=== PATIENT | female | born 1960 | race Asian ===

== ENCOUNTER 2016-03-16 08:00 | Outpatient (CLI) | payer OTHER | END 2016-03-16 08:01 | disposition home or self-care (01) | DX: Z00.00 Encounter for general adult medical examination without abnormal findings (principal); E78.00 Pure hypercholesterolemia, unspecified ==

== ENCOUNTER 2017-07-10 08:00 | Outpatient (CLI) | payer OTHER ==
[2017-07-10 13:42] LABS: BASOPHILS # (AUTO) 0.1 10^3/uL (0.0-0.1); BASOPHILS % (AUTO) 0.9 %; EOSINOPHILS # (AUTO) 0.4 10^3/uL (0.0-0.7); EOSINOPHILS % (AUTO) 5.9 %; HGB - HEMOGLOBIN 14.3 g/dL (12.0-16.0); LYMPHOCYTES % (AUTO) 29.5 %; MEAN CORPUSCULAR HEMOGLOBIN 28.4 pg (27.0-31.0); MEAN CORPUSCULAR HGB CONC 32.8 g/dL (32.0-36.0); MEAN CORPUSCULAR VOLUME 86.7 fL (81.0-99.0); MEAN PLATELET VOLUME 7.7 fL (7.9-10.8); MONOCYTES # (AUTO) 0.5 10^3/uL (0.0-1.0); MONOCYTES % (AUTO) 7.8 %; NEUTROPHILS # (AUTO) 3.8 10^3/uL (1.5-6.6); NEUTROPHILS % (AUTO) 55.9 %; PLT - PLATELET COUNT 299 10^3/uL (130-450); RED BLOOD COUNT 5.03 10^6/uL (4.20-5.40); RED CELL DISTRIBUTION WIDTH 15.6 % (12.0-15.0); WHITE BLOOD COUNT 6.8 x10^3/uL (4.8-10.8)
[2017-07-10 13:51] LABS: ALBUMIN 3.7 g/dL (3.2-5.5); ALBUMIN/GLOBULIN RATIO 0.9 (1.0-2.2); ALKALINE PHOSPHATASE 56 IU/L (42-121); ALT ALANINE AMINOTRANSFERASE 27 IU/L (10-60); AST ASPARTATE AMINOTRANSFERASE 29 IU/L (10-42); BILIRUBIN,TOTAL 0.9 mg/dL (0.2-1.0); BUN - BLOOD UREA NITROGEN 13 mg/dL (6-20); CARBON DIOXIDE - CO2 27 mmol/L (21-32); CHLORIDE 103 mmol/L (101-111); CHOL/HDL RATIO 3.2 (<4.4); CHOLESTEROL 174 mg/dL; CREATININE 0.6 mg/dL (0.4-1.0); GFR - MDRD 102 (>89); GLUCOSE 100 mg/dL (70-100); HDL CHOLESTEROL 55 mg/dL; LDL CHOLESTEROL,CALCULATED 100 mg/dL; LDL/HDL RATIO 1.8 (<4.4); SODIUM 137 mmol/L (135-145); TOTAL PROTEIN 7.8 g/dL (6.7-8.2); VLDL CHOLESTEROL 19 mg/dL
[2017-07-10 15:10] LABS: HEMOGLOBIN A1C 0.73 g/dL; HEMOGLOBIN A1C % 6.3 % (4.6-6.2)
== END 2017-07-10 08:01 | disposition home or self-care (01) ==
LOC: LAB.WCP 08:00
PROVIDERS: ATTEND Family Medicine
DX: I10 Essential (primary) hypertension (principal); E78.5 Hyperlipidemia, unspecified; R53.83 Other fatigue; G47.30 Sleep apnea, unspecified; R79.9 Abnormal finding of blood chemistry, unspecified; R73.9 Hyperglycemia, unspecified
CPT/HCPCS: 36415; 80053; 80061; 83036; 83721; 84443; 85025

== ENCOUNTER 2017-11-13 09:59 | Outpatient (CLI) | payer OTHER | END 2017-11-13 10:00 | disposition home or self-care (01) | LOC: SC 09:59 | PROVIDERS: ATTEND Internal Medicine Pulmonary Disease | DX: G47.33 Obstructive sleep apnea (adult) (pediatric) (principal) | CPT/HCPCS: 99203; 99212 ==

== ENCOUNTER 2017-12-27 20:30 | Outpatient (CLI) | payer OTHER | END 2017-12-27 20:31 | disposition home or self-care (01) | LOC: SC 20:30 | PROVIDERS: ATTEND Internal Medicine Pulmonary Disease | DX: G47.33 Obstructive sleep apnea (adult) (pediatric) (principal) | CPT/HCPCS: 95810 ==

== ENCOUNTER 2018-01-14 09:54 | Outpatient (CLI) | payer OTHER | END 2018-01-14 09:55 | disposition home or self-care (01) | LOC: SC 09:54 | PROVIDERS: ATTEND Internal Medicine Pulmonary Disease | DX: G47.33 Obstructive sleep apnea (adult) (pediatric) (principal) | CPT/HCPCS: 99212; 99213 ==

== ENCOUNTER 2018-04-05 09:45 | Outpatient (CLI) | payer OTHER ==
--- NOTE | 2018-04-08 10:06 | Mammography Report ---
Reason: ENCOUNTER FOR SCREENING MAMMOGRAM FOR MALIGNANT NE Procedure Date: 04/05/2018 Accession Number: [id number] / [id number] Procedure: FERMIN - Screening Mammo w/Brendon CPT Code: FULL RESULT: EXAM: Screening Mammo w/Brendon DATE: 04/05/2018 10:24 AM CLINICAL HISTORY: Screening encounter. History of early menses. TECHNIQUE: Bilateral CC and MLO views were obtained. A cleavage view was obtained. COMPARISON: 04/12/2012 through 05/01/2008. FINDINGS: The breasts demonstrate diffuse fatty replacement bilaterally. Benign-appearing intramammary lymph nodes are once again demonstrated, typically benign. No suspicious masses, clustered microcalcifications, or regions of architectural distortion are identified. IMPRESSION: Benign findings RECOMMENDATION: Routine annual screening unless otherwise clinically indicated. BIRADS CATEGORY 2: Benign findings STANDARD QUALIFYING STATEMENTS: 1. This examination was not reviewed with the aid of Computer-Aided Detection (CAD). 2. A negative or benign imaging report should not delay biopsy if clinically suspicious findings are present. Consider surgical consultation if warrented. More than 5% of cancers are not identified by imaging. 3. Dense breasts may obscure an underlying neoplasm. 4. This examination was reviewed with the aid of 3D breast imaging (tomosynthesis).
== END 2018-04-05 09:46 | disposition home or self-care (01) ==
LOC: DI 09:45
PROVIDERS: ATTEND Family Medicine
DX: Z12.31 Encounter for screening mammogram for malignant neoplasm of breast (principal); R73.03 Prediabetes
CPT/HCPCS: 77063; 77067

== ENCOUNTER 2018-04-05 11:34 | Outpatient (CLI) | payer OTHER ==
[2018-04-05 19:52] LABS: CALCIUM 9.3 mg/dL (8.5-10.3); CREATININE 0.6 mg/dL (0.4-1.0)
[2018-04-05 20:31] LABS: HB2 TOTAL 16.1 g/dL; HEMOGLOBIN A1C 0.77 g/dL; HEMOGLOBIN A1C % 6.5 % (4.6-6.2)
== END 2018-04-05 11:35 | disposition home or self-care (01) ==
LOC: LAB.WCP 11:34
PROVIDERS: ATTEND Physician Assistant Medical
DX: R73.03 Prediabetes (principal)
CPT/HCPCS: 36415; 80048; 83036

== ENCOUNTER 2018-04-11 10:22 | Outpatient (CLI) | payer OTHER ==
--- NOTE | 2018-04-11 12:11 | XRAY Report ---
Reason: LOW BACK PAIN Procedure Date: 04/11/2018 Accession Number: [id number] / [id number] Procedure: WCP - Lumbar Spine 2 View CPT Code: FULL RESULT: EXAM: LUMBOSACRAL SPINE RADIOGRAPHY EXAM DATE: 04/11/2018 10:36 AM. CLINICAL HISTORY: Low back pain. COMPARISONS: Lumbar spine 11/27/2007 3:18 PM. TECHNIQUE: 2 views. FINDINGS: Alignment: Normal. No spondylolisthesis or scoliosis. Bones: Five fdx-wwv-ksbqmst lumbar vertebral bodies are present. No fractures or bone lesions. Disks: Normal. Disk heights are maintained. Facets: Moderate lower lumbar spine facet degenerative changes are noted, predominately L4 and L5. Sacroiliac Joints: Unremarkable. Soft Tissues: Surgical clips are seen projecting in the right upper quadrant and over the pelvis. IMPRESSION: Facet predominant degenerative changes. RADIA
== END 2018-04-11 10:23 | disposition home or self-care (01) ==
LOC: DI.WCP 10:22
PROVIDERS: ATTEND Physician Assistant Medical
DX: M47.816 Spondylosis without myelopathy or radiculopathy, lumbar region (principal); Z71.3 Dietary counseling and surveillance; R73.03 Prediabetes
CPT/HCPCS: 72100; 97802

== ENCOUNTER 2018-04-11 12:53 | Outpatient (CLI) | payer OTHER | END 2018-04-11 12:54 | disposition home or self-care (01) | LOC: NS 12:53 | PROVIDERS: ATTEND Physician Assistant Medical | DX: Z71.3 Dietary counseling and surveillance (principal); R73.03 Prediabetes | CPT/HCPCS: 97802 ==

== ENCOUNTER 2018-04-22 13:19 | Outpatient (CLI) | payer OTHER | END 2018-04-22 13:20 | disposition home or self-care (01) | LOC: SC 13:19 | PROVIDERS: ATTEND Internal Medicine Pulmonary Disease | DX: G47.33 Obstructive sleep apnea (adult) (pediatric) (principal) | CPT/HCPCS: 99212; 99213 ==

== ENCOUNTER 2018-08-21 07:51 | Day surgery (SDC) | payer OTHER ==
[2018-08-21] MEDS ORDERED: LACTATED RINGERS 800 ML IV ONE (07:57)
[2018-08-21] MEDS ORDERED: fentaNYL 250 MCG/5 ML VIAL IVP ONE (09:25)
[2018-08-21] MEDS ORDERED: MIDAZOLAM 2 MG/2 ML VIAL IVP ONE (09:25)
[2018-08-21] MEDS ORDERED: LACTATED RINGERS 700 ML IV ONE (09:50)
[2018-08-21] MEDS ORDERED: ONDANSETRON 4 MG/2 ML VIAL ONE ×2 (11:11→11:33)
[2018-08-21] MEDS ORDERED: LACTATED RINGERS 1,000 ML IV ONE (11:50)
[2018-08-21] MEDS ORDERED: MECLIZINE 12.5 MG TABLET PO ONE (13:00)
[2018-08-21 13:28] VITALS: BP 135/99
== END 2018-08-21 07:52 | disposition home or self-care (01) ==
LOC: SDS 07:51
PROVIDERS: ATTEND Surgery
PROC: 0DBL8ZZ Excision of Transverse Colon, Via Natural or Artificial Opening Endoscopic (ICD-10-PCS; 2018-08-21)
PROC: 0DBH8ZZ Excision of Cecum, Via Natural or Artificial Opening Endoscopic (ICD-10-PCS; 2018-08-21)
PROC: 0DBM8ZZ Excision of Descending Colon, Via Natural or Artificial Opening Endoscopic (ICD-10-PCS; 2018-08-21)
PROC: 0DBN8ZZ Excision of Sigmoid Colon, Via Natural or Artificial Opening Endoscopic (ICD-10-PCS; principal; 2018-08-21 09:00)
DX: Z12.11 Encounter for screening for malignant neoplasm of colon (principal); D12.3 Benign neoplasm of transverse colon; D12.5 Benign neoplasm of sigmoid colon; K63.5 Polyp of colon; K64.8 Other hemorrhoids; K64.4 Residual hemorrhoidal skin tags; E66.01 Morbid (severe) obesity due to excess calories; I10 Essential (primary) hypertension; J45.909 Unspecified asthma, uncomplicated; Z68.42 Body mass index [BMI] 45.0-49.9, adult; Z87.891 Personal history of nicotine dependence; Z79.899 Other long term (current) drug therapy; Z79.51 Long term (current) use of inhaled steroids
CPT/HCPCS: 45380; 45385; A9270; J3010; J7120

== ENCOUNTER 2019-09-02 10:34 | Outpatient (CLI) | payer OTHER ==
[2019-09-02 18:11] LABS: BASOPHILS # (AUTO) 0.1 10^3/uL (0.0-0.1); BASOPHILS % (AUTO) 0.8 %; EOSINOPHILS # (AUTO) 0.3 10^3/uL (0.0-0.7); EOSINOPHILS % (AUTO) 4.5 %; HGB - HEMOGLOBIN 14.9 g/dL (12.0-16.0); LYMPHOCYTES # (AUTO) 1.9 10^3/uL (1.5-3.5); MEAN CORPUSCULAR HEMOGLOBIN 29.6 pg (27.0-31.0); MEAN CORPUSCULAR HGB CONC 32.4 g/dL (32.0-36.0); MEAN CORPUSCULAR VOLUME 91.3 fL (81.0-99.0); MEAN PLATELET VOLUME 9.2 fL (7.9-10.8); MONOCYTES # (AUTO) 0.5 10^3/uL (0.0-1.0); MONOCYTES % (AUTO) 7.8 %; NEUTROPHILS # (AUTO) 3.5 10^3/uL (1.5-6.6); NEUTROPHILS % (AUTO) 56.6 %; PLT - PLATELET COUNT 338 10^3/uL (130-450); RED BLOOD COUNT 5.04 10^6/uL (4.20-5.40); RED CELL DISTRIBUTION WIDTH 15.4 % (12.0-15.0); WHITE BLOOD COUNT 6.2 x10^3/uL (4.8-10.8)
[2019-09-02 19:27] LABS: ALBUMIN 3.9 g/dL (3.2-5.5); ALKALINE PHOSPHATASE 49 IU/L (42-121); ALT ALANINE AMINOTRANSFERASE 30 IU/L (10-60); AST ASPARTATE AMINOTRANSFERASE 26 IU/L (10-42); BILIRUBIN,TOTAL 0.9 mg/dL (0.2-1.0); BUN - BLOOD UREA NITROGEN 19 mg/dL (6-20); CALCIUM 9.6 mg/dL (8.5-10.3); CARBON DIOXIDE - CO2 22 mmol/L (21-32); CHLORIDE 103 mmol/L (101-111); CHOL/HDL RATIO 2.9 (<4.4); CHOLESTEROL 153 mg/dL; CREATININE 0.6 mg/dL (0.4-1.0); GLUCOSE 90 mg/dL (70-100); HDL CHOLESTEROL 52 mg/dL; LDL CHOLESTEROL,CALCULATED 86 mg/dL; LDL/HDL RATIO 1.7 (<4.4); SODIUM 139 mmol/L (135-145); TOTAL PROTEIN 7.8 g/dL (6.7-8.2); VLDL CHOLESTEROL 15 mg/dL
== END 2019-09-02 23:59 | disposition home or self-care (01) ==
LOC: LAB.WCP 10:34
PROVIDERS: ATTEND Physician Assistant Medical
DX: E11.9 Type 2 diabetes mellitus without complications (principal); E78.5 Hyperlipidemia, unspecified; R53.83 Other fatigue
CPT/HCPCS: 36415; 80053; 80061; 81599; 82043; 83036; 83721; 84443; 85025

== ENCOUNTER 2020-10-19 08:00 | Outpatient (CLI) | payer OTHER ==
[2020-10-19 12:15] LABS: BASOPHILS # (AUTO) 0.1 10^3/uL (0.0-0.1); EOSINOPHILS # (AUTO) 0.6 10^3/uL (0.0-0.7); EOSINOPHILS % (AUTO) 7.3 %; HCT - HEMATOCRIT 45.5 % (37.0-47.0); HGB - HEMOGLOBIN 14.8 g/dL (12.0-16.0); LYMPHOCYTES # (AUTO) 2.5 10^3/uL (1.5-3.5); LYMPHOCYTES % (AUTO) 31.4 %; MEAN CORPUSCULAR HEMOGLOBIN 29.4 pg (27.0-31.0); MEAN CORPUSCULAR HGB CONC 32.5 g/dL (32.0-36.0); MEAN CORPUSCULAR VOLUME 90.3 fL (81.0-99.0); MEAN PLATELET VOLUME 9.5 fL (7.9-10.8); MONOCYTES # (AUTO) 0.6 10^3/uL (0.0-1.0); NEUTROPHILS # (AUTO) 4.1 10^3/uL (1.5-6.6); PLT - PLATELET COUNT 322 10^3/uL (130-450); RED BLOOD COUNT 5.04 10^6/uL (4.20-5.40); RED CELL DISTRIBUTION WIDTH 14.6 % (12.0-15.0); WHITE BLOOD COUNT 7.9 x10^3/uL (4.8-10.8)
[2020-10-19 12:28] LABS: ALBUMIN 4.2 g/dL (3.2-5.5); ALBUMIN/GLOBULIN RATIO 1.1 (1.0-2.2); ALKALINE PHOSPHATASE 51 IU/L (42-121); ALT ALANINE AMINOTRANSFERASE 19 IU/L (10-60); AST ASPARTATE AMINOTRANSFERASE 20 IU/L (10-42); BILIRUBIN,TOTAL 0.9 mg/dL (0.2-1.0); BUN - BLOOD UREA NITROGEN 14 mg/dL (6-20); CALCIUM 9.9 mg/dL (8.5-10.3); CARBON DIOXIDE - CO2 30 mmol/L (21-32); CHLORIDE 99 mmol/L (101-111); CHOL/HDL RATIO 3.2 (<4.4); CHOLESTEROL 204 mg/dL; CREATININE 0.7 mg/dL (0.4-1.0); GFR - MDRD 85 (>89); GLUCOSE 114 mg/dL (70-100); HDL CHOLESTEROL 63 mg/dL; LDL CHOLESTEROL,CALCULATED 112 mg/dL; LDL/HDL RATIO 1.8 (<4.4); POTASSIUM 4.6 mmol/L (3.5-5.0); SODIUM 140 mmol/L (135-145); TOTAL PROTEIN 8.2 g/dL (6.7-8.2); TRIGLYCERIDES 147 mg/dL; VLDL CHOLESTEROL 29 mg/dL
[2020-10-19 12:31] LABS: ESTIMATED AVERAGE GLUCOSE 128 mg/dL (70-100); HEMOGLOBIN A1c% 6.1 % (4.27-6.07)
[2020-10-19 12:32] LABS: CREATININE,URINE 107.5 mg/dL; MICROALBUM/CREATININE RATIO,UR 7.4 ug/mg (<30.0); MICROALBUMIN,URINE 0.8 mg/dL (0-300.0)
[2020-10-19 12:38] LABS: THYROID STIMULATING HORMONE 1.21 uIU/mL (0.34-5.60)
== END 2020-10-19 23:59 | disposition home or self-care (01) ==
LOC: LAB.WCP 08:00
PROVIDERS: ATTEND Physician Assistant Medical
DX: I10 Essential (primary) hypertension (principal); E78.5 Hyperlipidemia, unspecified; E11.9 Type 2 diabetes mellitus without complications
CPT/HCPCS: 36415; 80053; 80061; 82043; 82570; 83036; 83721; 84443; 85025

== ENCOUNTER 2020-11-08 14:11 | Outpatient (CLI) | payer OTHER ==
--- NOTE | 2020-11-08 14:55 | SLEEP CARE CONSULTATION ---
Information from patient questionnaire entered by Beti Arango. I have reviewed and concur with the information entered by Beit Arango. This document represents the service I personally performed and the decisions made by me, Aida Salvador MD, [facility]. History of Present Illness Service Date and Time: 11/08/2020 1411 Previous diagnosis: Very Severe, Obstructive Sleep Apnea-Hypopnea Syndrome AHI: 85.8 Reason for follow up: annual Equipment type: CPAP Equipment obtained from: [employer] Prior sleep studies: Yes Year and Where: 12/2017 [facility] Type of Sleep Study: Polysomnography HPI additional information: Ms. Lima returned today for follow up of nasal CPAP therapy. She was diagnosed to have very severe obstructive sleep apnea-hypopnea syndrome. The patient went to [facility] for the equipment and was fitted with a nasal mask. She reports using the device nightly and all through the night. The compliance report shows usage in 169 nights out of the past 180 nights, averaging 5.5 hours a night. The > 4 hour compliance rate for the past 30 days is 81.7%. She complained of no particular problem with the device such as soreness on the face, dry nose, epistaxis, nasal congestion or headache. She thinks that the pressure of 10 - 16 cmH2O is comfortable. On the CPAP therapy she notices improvement in her sleep quality, and that she wakes up feeling fresher in the morning and more awake/alert during the day. The Paterson Sleepiness Scale score 13. Her notices no snore at all. The average residual AHI is 3.0. Average time in large leak per day is 16 minutes. The 90th percentile pressure is 14.5 cmH2O. CPAP Compliance Data - Data Reviewed with Patient Average duration of nightly device use: 5 hours 31 minutes Compliance rate %: 81.7 Current pressure setting (cmH2O): 10-16 Humidity settin Heated hose settin Average residual AHI: 3 Average large leak: 16 minutes 51 seconds Subjective Missed days of use due to: reports: other Patient concerns: reports: mask discomfort, air blowing in eyes, mask leak noise, nasal congestion, other (headache) Current pressure setting perceived as: comfortable Initial Paterson Sleepiness Scale score: 9 (in 2018) Current Paterson Sleepiness Scale score: 13 Allergies and Home Medications Drug allergies reviewed: Yes Home medication list reviewed: Yes Review of Systems Review of systems same as previous: Yes Physical Exam Heart Rate: 93 O2 Saturation: 100 Height: 5 ft Weight: 238 lb Body Mass Index: 46.5 BMI Classification: Morbidly Obese Impression and Plan IMPRESSION: 1. Obstructive Sleep Apnea-Hypopnea Syndrome, very severe (AHI was 85.8) with the patient not using her Respironics autoCPAP because of the recall. She has not seen any debris in the water reservoir or the hose. She has some headache but not respiratory symptoms. Because her sleep-disordered breathing is very severe, I recommend using the device until it can be replaced. I will also issue her a prescription for a ResMed device. PLAN: 1. Continue with autoCPAP set at 10 - 16 cmH2O. 2. Prescription made for a ResMed AirSense 10 autoCPAP. 3. Try to lose weight. 4. Return in one year for follow up or earlier if she does get a new machine. Follow up with [facility] Care in: 1 year Visit Type: In Office Time Spent with Patient (minutes): 15 Provider Statement: I spent 100% of the Face to Face Visit with the patient with greater than 50% spent counseling the patient and coordination of care.
== END 2020-11-08 14:12 | disposition home or self-care (01) ==
LOC: SC 14:11
PROVIDERS: ATTEND Internal Medicine Pulmonary Disease
DX: G47.33 Obstructive sleep apnea (adult) (pediatric) (principal); E66.01 Morbid (severe) obesity due to excess calories; Z68.42 Body mass index [BMI] 45.0-49.9, adult
CPT/HCPCS: 99212

== ENCOUNTER 2021-01-17 12:05 | Outpatient (CLI) | payer OTHER ==
[2021-01-17 18:29] LABS: ALBUMIN 4.2 g/dL (3.2-5.5); ALBUMIN/GLOBULIN RATIO 1.1 (1.0-2.2); ALKALINE PHOSPHATASE 50 IU/L (42-121); ALT ALANINE AMINOTRANSFERASE 21 IU/L (10-60); AST ASPARTATE AMINOTRANSFERASE 24 IU/L (10-42); BILIRUBIN,TOTAL 0.8 mg/dL (0.2-1.0); BUN - BLOOD UREA NITROGEN 14 mg/dL (6-20); CALCIUM 9.7 mg/dL (8.5-10.3); CARBON DIOXIDE - CO2 29 mmol/L (21-32); CHLORIDE 100 mmol/L (101-111); CHOL/HDL RATIO 2.6 (<4.4); CHOLESTEROL 166 mg/dL; CREATININE 0.7 mg/dL (0.4-1.0); GFR - MDRD 85 (>89); GLUCOSE 86 mg/dL (70-100); HDL CHOLESTEROL 63 mg/dL; LDL CHOLESTEROL,CALCULATED 75 mg/dL; LDL/HDL RATIO 1.2 (<4.4); POTASSIUM 4.1 mmol/L (3.5-5.0); SODIUM 137 mmol/L (135-145); TOTAL PROTEIN 8.1 g/dL (6.7-8.2); TRIGLYCERIDES 138 mg/dL; VLDL CHOLESTEROL 28 mg/dL
[2021-01-17 18:47] LABS: ESTIMATED AVERAGE GLUCOSE 126 mg/dL (70-100)
== END 2021-01-17 23:59 | disposition home or self-care (01) ==
LOC: LAB.WCP 12:05
PROVIDERS: ATTEND Physician Assistant Medical
DX: E11.9 Type 2 diabetes mellitus without complications (principal)
CPT/HCPCS: 36415; 80053; 80061; 83036; 83721

== ENCOUNTER 2021-04-15 12:35 | Outpatient (CLI) | payer OTHER ==
[2021-04-15 18:07] LABS: CALCIUM 9.6 mg/dL (8.5-10.3); CREATININE 0.8 mg/dL (0.4-1.0); POTASSIUM 4.1 mmol/L (3.5-5.0)
[2021-04-15 20:57] LABS: ESTIMATED AVERAGE GLUCOSE 120 mg/dL (70-100); HEMOGLOBIN A1c% 5.8 % (4.27-6.07)
== END 2021-04-15 12:36 | disposition home or self-care (01) ==
LOC: LAB.N 12:35
PROVIDERS: ATTEND Physician Assistant Medical
DX: E11.9 Type 2 diabetes mellitus without complications (principal)
CPT/HCPCS: 36415; 80048; 83036

== ENCOUNTER 2021-06-15 11:34 | Outpatient (CLI) | payer OTHER ==
--- NOTE | 2021-06-17 16:24 | Mammography Report ---
BILATERAL DIGITAL SCREENING MAMMOGRAM 3D/2D: 06/15/2021 CLINICAL: Routine screening. Comparison is made to exams dated: 09/09/2019 mammogram, 04/05/2018 mammogram, 04/12/2012 mammogram, and 10/26/2009 mammogram - [facility]. The tissue of both breasts is predominantly fat ty. No significant masses, calcifications, or other findings are seen in either breast. There has been no significant interval change. IMPRESSION: NEGATIVE There is no mammographic evidence of malignancy. A 1 year screening mammogram is recommended. This exam was interpreted at Station ID: [id number]. NOTE: For mammograms, a report in lay terms will be sent to the patient. Approximately 15% of breast malignancies will not be visualized mammographically. In the management of a palpable breast mass, a negative mammogram must not discourage biopsy of a clinically suspicious lesion. Electronically Signed By: Sanket Rao M.D., jr/penrad:06/15/2021 12:33:11 ACR BI-RADS Category 1: Negative 3341F PARENCHYMAL PATTERN: (F) - The breast(s) demonstrate(s) diffuse fatty replacement. BI-RADS CATEGORY: (1) - 1 RECOMMENDATION: (ANNUAL) - Recommend routine annual screening mammography. [id number] 1 year screening LATERALITY: (B)
== END 2021-06-15 11:35 | disposition home or self-care (01) ==
LOC: DI.N 11:34
DX: Z12.31 Encounter for screening mammogram for malignant neoplasm of breast (principal)

== ENCOUNTER 2021-11-01 09:49 | Outpatient (CLI) | payer OTHER ==
[2021-11-01 12:50] LABS: BASOPHILS % (AUTO) 0.6 %; EOSINOPHILS # (AUTO) 0.3 10^3/uL (0.0-0.7); EOSINOPHILS % (AUTO) 4.9 %; HCT - HEMATOCRIT 43.4 % (37.0-47.0); HGB - HEMOGLOBIN 14.4 g/dL (12.0-16.0); LYMPHOCYTES % (AUTO) 31.4 %; MEAN CORPUSCULAR HEMOGLOBIN 29.1 pg (27.0-31.0); MEAN CORPUSCULAR HGB CONC 33.2 g/dL (32.0-36.0); MEAN CORPUSCULAR VOLUME 87.7 fL (81.0-99.0); MEAN PLATELET VOLUME 9.3 fL (7.9-10.8); MONOCYTES # (AUTO) 0.5 10^3/uL (0.0-1.0); MONOCYTES % (AUTO) 8.4 %; NEUTROPHILS # (AUTO) 3.4 10^3/uL (1.5-6.6); NEUTROPHILS % (AUTO) 54.4 %; PLT - PLATELET COUNT 293 10^3/uL (130-450); RED BLOOD COUNT 4.95 10^6/uL (4.20-5.40); RED CELL DISTRIBUTION WIDTH 14.6 % (12.0-15.0); WHITE BLOOD COUNT 6.3 x10^3/uL (4.8-10.8)
[2021-11-01 13:34] LABS: CREATININE,URINE 18.6 mg/dL; MICROALBUM/CREATININE RATIO,UR 21.5 ug/mg (<30.0); MICROALBUMIN,URINE 0.4 mg/dL (0-300.0)
[2021-11-01 13:39] LABS: ALBUMIN 4.2 g/dL (3.2-5.5); ALKALINE PHOSPHATASE 47 IU/L (42-121); ALT ALANINE AMINOTRANSFERASE 24 IU/L (10-60); AST ASPARTATE AMINOTRANSFERASE 26 IU/L (10-42); BILIRUBIN,TOTAL 0.7 mg/dL (0.2-1.0); BUN - BLOOD UREA NITROGEN 18 mg/dL (6-20); CARBON DIOXIDE - CO2 26 mmol/L (21-32); CHLORIDE 102 mmol/L (101-111); CHOL/HDL RATIO 2.1 (<4.4); CHOLESTEROL 126 mg/dL; CREATININE 0.8 mg/dL (0.4-1.0); GFR - MDRD 72 (>89); GLUCOSE 94 mg/dL (70-100); HDL CHOLESTEROL 61 mg/dL; LDL CHOLESTEROL,CALCULATED 49 mg/dL; LDL/HDL RATIO 0.8 (<4.4); SODIUM 138 mmol/L (135-145); TOTAL PROTEIN 8.4 g/dL (6.7-8.2); TRIGLYCERIDES 80 mg/dL; VLDL CHOLESTEROL 16 mg/dL
[2021-11-01 13:47] LABS: THYROID STIMULATING HORMONE 1.24 uIU/mL (0.34-5.60)
[2021-11-01 14:08] LABS: ESTIMATED AVERAGE GLUCOSE 117 mg/dL (70-100); HEMOGLOBIN A1c% 5.7 % (4.27-6.07)
== END 2021-11-01 09:50 | disposition home or self-care (01) ==
LOC: LAB.N 09:49
PROVIDERS: ATTEND Physician Assistant Medical
DX: Z00.00 Encounter for general adult medical examination without abnormal findings (principal); E11.9 Type 2 diabetes mellitus without complications; E78.5 Hyperlipidemia, unspecified
CPT/HCPCS: 36415; 80053; 80061; 82043; 82570; 83036; 83721; 84443; 85025

== ENCOUNTER 2022-10-26 11:16 | Outpatient (CLI) | payer OTHER ==
[2022-10-26 17:53] LABS: CALCIUM 9.9 mg/dL (8.5-10.3); CREATININE 0.7 mg/dL (0.6-1.3); POTASSIUM 4.3 mmol/L (3.5-4.5)
[2022-10-26 21:13] LABS: ESTIMATED AVERAGE GLUCOSE 123 mg/dL (70-100); HEMOGLOBIN A1c% 5.9 % (4.27-6.07)
== END 2022-10-26 11:17 | disposition home or self-care (01) ==
LOC: LAB.N 11:16
PROVIDERS: ATTEND Physician Assistant Medical
DX: E11.9 Type 2 diabetes mellitus without complications (principal)
CPT/HCPCS: 36415; 80048; 83036

== ENCOUNTER 2022-11-15 10:50 | Outpatient (CLI) | payer OTHER ==
--- NOTE | 2022-11-16 11:18 | Mammography Report ---
BILATERAL DIGITAL SCREENING MAMMOGRAM 3D/2D: 11/15/2022 CLINICAL: Routine screening. Comparison is made to exams dated: 06/15/2021 mammogram, 09/09/2019 mammogram, 04/05/2018 mammogram, 04/12 mammogram, 10/26/2009 mammogram, and 05/01/2008 mammogram - [facility]. Both breasts are almost entirely fatty (category a/<25% glandular tissue). No significant masses, calcifications, or other findings are seen in either breast. There has been no significant interval change. IMPRESSION: NEGATIVE There is no mammographic evidence of malignancy. A 1 year screening mammogram is recommended. Based on the Tyrer Cuzick model (a risk assessment model) the patients lifetime risk is 3.0% and her 10 year risk is 1.4%. According to the ACR, ACS, and NCCN guidelines, an annual breast MRI exam riya g with mammogram is recommended if the patients lifetime risk is 20% or greater. This exam was interpreted at Station ID: [id number]. NOTE: For mammograms, a report in lay terms will be sent to the patient. Approximately 15% of breast malignancies will not be visualized mammographically. In the management of a palpable breast mass, a negative mammogram must not discourage biopsy of a clinically suspicious lesion. Electronically Signed By: Haja mathew/[email or web address]:11/15/2022 14:29:59 letter sent: No_Letter ACR BI-RADS Category 1: Negative 3341F PARENCHYMAL PATTERN: (F) - The breast(s) demonstrate(s) diffuse fatty replacement. BI-RADS CATEGORY: (1) - 1 Mammogram [id number] 1 year screening LATERALITY: (B)
== END 2022-11-15 10:51 | disposition home or self-care (01) ==
LOC: DI.N 10:50
DX: Z12.31 Encounter for screening mammogram for malignant neoplasm of breast (principal)

== ENCOUNTER 2022-11-15 10:59 | Outpatient (CLI) | payer OTHER ==
[2022-11-15 17:39] LABS: BASOPHILS # (AUTO) 0.1 10^3/uL (0.0-0.1); EOSINOPHILS # (AUTO) 0.4 10^3/uL (0.0-0.7); EOSINOPHILS % (AUTO) 5.9 %; HCT - HEMATOCRIT 45.9 % (37.0-47.0); LYMPHOCYTES # (AUTO) 2.1 10^3/uL (1.5-3.5); LYMPHOCYTES % (AUTO) 34.2 %; MEAN CORPUSCULAR HEMOGLOBIN 29.1 pg (27.0-31.0); MEAN CORPUSCULAR HGB CONC 32.7 g/dL (32.0-36.0); MEAN CORPUSCULAR VOLUME 89.1 fL (81.0-99.0); MEAN PLATELET VOLUME 9.4 fL (7.9-10.8); MONOCYTES # (AUTO) 0.6 10^3/uL (0.0-1.0); MONOCYTES % (AUTO) 8.9 %; NEUTROPHILS # (AUTO) 3.1 10^3/uL (1.5-6.6); NEUTROPHILS % (AUTO) 49.8 %; PLT - PLATELET COUNT 330 10^3/uL (130-450); RED BLOOD COUNT 5.15 10^6/uL (4.20-5.40); RED CELL DISTRIBUTION WIDTH 14.4 % (12.0-15.0); WHITE BLOOD COUNT 6.3 x10^3/uL (4.8-10.8)
[2022-11-15 18:34] LABS: CREATININE,URINE 165.3 mg/dL; MICROALBUM/CREATININE RATIO,UR 9.1 ug/mg (<30.0); MICROALBUMIN,URINE 1.5 mg/dL
[2022-11-15 18:38] LABS: THYROID STIMULATING HORMONE 1.02 uIU/mL (0.34-5.60)
[2022-11-15 18:44] LABS: FERRITIN 67.1 ng/mL (11.0-306.8)
[2022-11-15 18:49] LABS: CHOL/HDL RATIO 2.1 (<4.4); CHOLESTEROL 142 mg/dL; HDL CHOLESTEROL 67 mg/dL; LDL CHOLESTEROL,CALCULATED 40 mg/dL; LDL/HDL RATIO 0.6 (<4.4); TRIGLYCERIDES 174 mg/dL (48-352); VLDL CHOLESTEROL 35 mg/dL
== END 2022-11-15 11:00 | disposition home or self-care (01) ==
LOC: LAB.N 10:59
PROVIDERS: ATTEND Physician Assistant Medical
DX: Z00.00 Encounter for general adult medical examination without abnormal findings (principal); L65.9 Nonscarring hair loss, unspecified
CPT/HCPCS: 36415; 80061; 82043; 82570; 82728; 83721; 84443; 85025

== ENCOUNTER 2023-02-14 16:53 | Outpatient (CLI) | payer MEDICARE, OTHER ==
--- NOTE | 2023-02-15 13:11 | XRAY Report ---
PROCEDURE: Cervical Spine 2-3V INDICATIONS: CERVICAL RADICULOPATHY TECHNIQUE: 3 view(s) of the cervical spine were acquired. COMPARISON: None. FINDINGS: Bones: No fractures or dislocations to the C7 level. The lateral masses of C1 appear intact on the odontoid view. No suspicious bony lesions. Straightening of cervical lordosis. Multilevel cervical spondylosis with degenerative endplate changes, disc space loss, and endplate osteophyte formation. M ild multilevel facet arthropathy. Soft tissues: No prevertebral soft tissue swelling. Lung apices are clear. IMPRESSION: Cervical spine without acute fracture or traumatic malalignment. Straightening of normal cervical jax dosis likely related to positioning and/or concurrent muscle spasms. Moderate multilevel cervical spo ndylosis. Reviewed by: Herbert Villarreal MD on 02/15/2023 1:09 PM PST Approved by: Herbert Villarreal MD on 02/15/2023 1:09 PM PST Station ID: [id number]
--- NOTE | 2023-02-15 13:17 | XRAY Report ---
PROCEDURE: Lumbar Spine 2-3V INDICATIONS: CHRONIC LOW BACK PAIN TECHNIQUE: 3 views of the lumbar spine were acquired. COMPARISON: 04/11/2018. FINDINGS: Bones: 5 wwq-wjh-eprdiln vertebrae are present. There is grade 1 anterolisthesis at L4-5 measuring a pproximately 7 mm. This is increased compared to the prior study. Mild interval progression of multil evel lumbar spondylosis with degenerative endplate changes, mild to space loss, and endplate osteophy te formation. There is moderate mid and lower lumbar facet arthropathy which appears to have progress ed as well. No acute compression fractures. Soft tissues: Overlying bowel gas pattern is normal. No suspicious soft tissue calcifications. Cli ps from bilateral tubal ligation. IMPRESSION: Moderate multilevel lumbar spondylosis which has demonstrated progression since the prio r study in 2019. There is increased grade 1 anterolisthesis at L4-5 measuring approximately 7 mm. Thi s is likely related to progression of moderate lumbar spondylitic changes and facet arthropathy. No f indings to suggest pars defects. Reviewed by: Herbert Villarreal MD on 02/15/2023 1:15 PM PST Approved by: Herbert Villarreal MD on 02/15/2023 1:15 PM PST Station ID: [id number]
--- NOTE | 2023-02-15 13:17 | XRAY Report ---
PROCEDURE: Knee 3V LT INDICATIONS: LEFT KNEE PAIN TECHNIQUE: 3 views of the knee(s) were acquired. COMPARISON: None. FINDINGS: Bones: No acute fractures or dislocations. No suspicious bony lesions. Tricompartmental degenerat roz changes of the left knee with mild medial femorotibial compartment joint space narrowing. Soft tissues: No substantial knee joint effusion. No suspicious soft tissue calcifications or masses . IMPRESSION: No acute bony abnormality. Tricompartmental left knee osteoarthrosis without significant joint effusi on. Reviewed by: Herbert Villarreal MD on 02/15/2023 1:16 PM PST Approved by: Herbert Villarreal MD on 02/15/2023 1:16 PM PST Station ID: [id number]
== END 2023-02-14 16:54 | disposition home or self-care (01) ==
LOC: DI 16:53
PROVIDERS: ATTEND Physician Assistant Medical
DX: M17.12 Unilateral primary osteoarthritis, left knee (principal); M47.816 Spondylosis without myelopathy or radiculopathy, lumbar region; M43.16 Spondylolisthesis, lumbar region; M47.22 Other spondylosis with radiculopathy, cervical region

== ENCOUNTER 2023-06-05 07:09 | Day surgery (SDC) | payer MEDICARE, OTHER ==
[2023-06-05] MEDS: LACTATED RINGERS 1,000 ML IV ONE ×2 (07:20→08:55)
[2023-06-05] MEDS ORDERED: LIDOCAINE-MPF 2% 5 ML VIAL ONE (08:07)
[2023-06-05] MEDS ORDERED: PROPOFOL 500 MG/50 ML 500 MG/50 ML VIAL ONE (08:07)
--- NOTE | 2023-06-05 08:15 | ANESTHESIA ---
Pre-Anesthesia VS, & Labs - Diagnosis hx of polyps - Procedure colonoscopy Height: 5 ft Weight (kg): 104.8 kg Body Mass Index: 45.1 BMI Classification: Morbidly Obese - NPO >8 hours - Is Patient ?: No - Lab Results Current Lab Results: Laboratory Tests 06/05/23 07:39: POC Whole Bld Glucose 106 H Home Medications and Allergies Home Medications: Ambulatory Orders Albuterol Sulf [Ventolin Hfa Inhaler] 1 - 2 puffs INH Q4HR PRN 05/30/23 Amitriptyline [Elavil] 4 - 5 tab PO QPM 05/30/23 Cholecalciferol (Vitamin D3) [Vitamin D3] 1,000 unit PO DAILY 05/30/23 Docusate Sodium [Dulcolax Stool Softener] 100 mg PO DAILY 05/30/23 Dulaglutide [Trulicity] 4.5 mg SUBQ OAW 05/30/23 Meloxicam 7.5 mg PO BID PRN 05/30/23 Multivitamin 1 each PO DAILY 05/30/23 [place]-3S/Dha/Epa/Fish Oil [Fish Oil 1,200 mg Softgel] 1 each PO DAILY 05/30/23 Psyllium [Metamucil] 1 each PO DAILY 05/30/23 Rosuvastatin Calcium [Crestor] 10 mg PO DAILY 05/30/23 Tretinoin [Retin-A] 1 applic TP DAILY 05/30/23 Triamcinolone Acetonide 0.1% [Triamcinolone Acetonide] 1 applic TP BID PRN 05/30/23 minoxidiL [Minoxidil] 1 applic TP DAILY 05/30/23 Amlodipine Besylate 10 mg PO DAILY 08/21/18 Fluticasone/Salmeterol [Advair 250-50 Diskus] 1 puffs PO DAILY PRN 08/21/18 Metformin HCl [Metformin ER Gastric] 500 mg PO DAILY 08/21/18 lisinopriL [Lisinopril] 40 mg PO DAILY 08/21/18 Albuterol Sulf [Ventolin Hfa Inhaler] 1 - 2 puffs INH Q4HR PRN 05/30/23 Amitriptyline [Elavil] 4 - 5 tab PO QPM 05/30/23 Cholecalciferol (Vitamin D3) [Vitamin D3] 1,000 unit PO DAILY 05/30/23 Docusate Sodium [Dulcolax Stool Softener] 100 mg PO DAILY 05/30/23 Dulaglutide [Trulicity] 4.5 mg SUBQ OAW 05/30/23 Meloxicam 7.5 mg PO BID PRN 05/30/23 Multivitamin 1 each PO DAILY 05/30/23 [place]-3S/Dha/Epa/Fish Oil [Fish Oil 1,200 mg Softgel] 1 each PO DAILY 05/30/23 Psyllium [Metamucil] 1 each PO DAILY 05/30/23 Rosuvastatin Calcium [Crestor] 10 mg PO DAILY 05/30/23 Tretinoin [Retin-A] 1 applic TP DAILY 05/30/23 Triamcinolone Acetonide 0.1% [Triamcinolone Acetonide] 1 applic TP BID PRN 05/30/23 minoxidiL [Minoxidil] 1 applic TP DAILY 05/30/23 Allergies/Adverse Reactions: Allergies Allergy/AdvReac Type Severity Reaction Status Date / Time No Known Drug Allergies Allergy Verified 05/30/23 14:28 Anes History & Medical History - Anesthetic History Anesthesia Complications: reports: No previous complications Family history of Anesthesia Complications: Denies Family history of Malignant Hyperthermia: Denies - Medical History Cardiovascular: reports: Hypertension, High cholesterol Pulmonary: reports: Asthma, Sleep apnea, CPAP use Gastrointestinal: reports: GERD, Colon polyps, Chronic constipation, Hemorrhoids Urinary: reports: Kidney stones Musculoskeletal: reports: Osteoarthritis Endocrine/Autoimmune: reports: Type 2 diabetes Skin: reports: Eczema - Surgical History General: reports: Cholecystectomy, Colonoscopy Gynecologic: reports: Dilation and currettage Exam General: Alert, Oriented x3, Cooperative Dental: WNL Mouth Openin Fingerbreadth Neck Mobility: Normal Mallampati classification: III Thyromental Distance: less than 4 cm Respiratory: Lungs clear Cardiovascular: Regular rate Plan Anesthesia Type: General, Total IV Consent for Procedure(s) Verified and Reviewed: Yes Code Status: Attempt Resuscitation ASA classification: 3-Severe systemic disease Is this case an emergency?: No
[2023-06-05] MEDS ORDERED: PROPOFOL 200 MG/20 ML VIAL IVP ONE (08:50)
[2023-06-05] MEDS ORDERED: LIDOCAINE OINTMENT 5% 35.44 GM TUBE TOP STA (09:13)
[2023-06-05 09:24] VITALS: BP 108/73; O2SAT 98
--- NOTE | 2023-06-05 09:43 | ANESTHESIA POST OP EVALUATION ---
Anesthesia Post Eval - Post Anesthesia Eval Vitals: Last Vital Signs Temp 36.0 C L 06/05/23 08:55 Pulse 98 06/05/23 09:19 Resp 17 06/05/23 09:19 BP 108/73 06/05/23 09:19 Pulse Ox 98 06/05/23 09:19 O2 Flow Rate CV Function Including HR & BP: Stable Pain Control: Satisfactory Nausea & Vomiting: Negative Mental Status: Baseline Respiratory Status: Airway Patent Hydration Status: Satisfactory Anesthesia Complications: None
[2023-06-05] MEDS ORDERED: ONDANSETRON ODT 4 MG TABLET ONE (09:52)
[2023-06-05] MEDS ORDERED: LIDOCAINE/PRILOCAINE 2.5% CREAM 5 GM TUBE TOP ONE (09:53)
[2023-06-05] MEDS: ONDANSETRON ODT 4 MG TABLET TL PRN (09:56)
[2023-06-05] MEDS ORDERED: LIDOCAINE OINTMENT 5% 35.44 GM TUBE ONE (10:03)
== END 2023-06-05 07:10 | disposition home or self-care (01) ==
LOC: SDS 07:09
PROVIDERS: ATTEND Surgery
PROC: 0DBL8ZX Excision of Transverse Colon, Via Natural or Artificial Opening Endoscopic, Diagnostic (ICD-10-PCS; 2023-06-05)
PROC: 0DBN8ZX Excision of Sigmoid Colon, Via Natural or Artificial Opening Endoscopic, Diagnostic (ICD-10-PCS; 2023-06-05)
PROC: 0DBM8ZX Excision of Descending Colon, Via Natural or Artificial Opening Endoscopic, Diagnostic (ICD-10-PCS; 2023-06-05)
PROC: 0DBH8ZX Excision of Cecum, Via Natural or Artificial Opening Endoscopic, Diagnostic (ICD-10-PCS; 2023-06-05)
PROC: 0DBQ8ZX Excision of Anus, Via Natural or Artificial Opening Endoscopic, Diagnostic (ICD-10-PCS; principal; 2023-06-05 08:30)
DX: D12.0 Benign neoplasm of cecum (principal); D12.3 Benign neoplasm of transverse colon; D12.4 Benign neoplasm of descending colon; K62.1 Rectal polyp; K63.5 Polyp of colon; K64.9 Unspecified hemorrhoids; K92.1 Melena; K59.09 Other constipation; I10 Essential (primary) hypertension; E66.01 Morbid (severe) obesity due to excess calories; G47.33 Obstructive sleep apnea (adult) (pediatric); J45.909 Unspecified asthma, uncomplicated; Z68.42 Body mass index [BMI] 45.0-49.9, adult; Z87.891 Personal history of nicotine dependence
CPT/HCPCS: 45380; A9270; J7120; Q0162